=== PATIENT | female | born 1945 | race Two or more races ===

== ENCOUNTER → 2021-01-02 | Emergency (ER) | payer MEDICARE ==
[~2021-01-02] VITALS: Ht 167.6 cm; Wt 86.2 kg
[~2021-01-02] MED LIST: IBUP-1955 PO; KETOROLAC TROMETHAMINE INJ 30 MG/ML VIAL IM ONE; KETOROLAC TROMETHAMINE INJ 30 MG/ML VIAL ONE
--- NOTE | 2021-01-02 13:30 | NUR ---
The patient BIB for c/o abd pain since last night 9/10 pain scale, and c/o N/V. The patient is alert and orieneted x3. In room air and denies SOB. Respiration regular and unlabored. The patient is provided with a blanet for comfort. The patient is on monitor. Will continue to monitor.
[2021-01-02 13:53] LABS: BASOPHILS % (AUTO) 1.1 % (0.0-2.0); EOSINOPHILS % (AUTO) 2.2 % (0.0-6.0); HEMATOCRIT 41 % (33-45); HEMOGLOBIN 13.6 g/dL (11.5-14.8); LYMPHOCYTES # (AUTO) 1.3 /CMM (0.8-4.8); LYMPHOCYTES % (AUTO) 29.6 % (20.0-44.0); MEAN CORPUSCULAR HGB CONC 33 g/dl (31.0-36.0); MEAN CORPUSCULAR VOLUME 91 fL (82-100); MONOCYTES # (AUTO) 0.5 /CMM (0.1-1.30); MONOCYTES % (AUTO) 10.9 % (2.0-12.0); NEUTROPHILS # (AUTO) 2.5 /CMM (1.8-8.9); NEUTROPHILS % (AUTO) 56.2 % (43.0-81.0); PLATELET COUNT (AUTO) 216 /CMM (150-450); RED BLOOD CELL COUNT(AUTO) 4.52 MIL/uL (4.0-5.2); WHITE BLOOD COUNT (AUTO) 4.4 K/uL (4.3-11.0)
[2021-01-02 14:06] LABS: ALBUMIN 3.4 g/dL (3.4-5.0); BILIRUBIN,DIRECT 0.1 mg/dL (0.0-0.2); BILIRUBIN,TOTAL 0.3 mg/dL (0.2-1.0); CALCIUM, SERUM 9.2 mg/dL (8.5-10.1); CREATININE 0.9 mg/dL (0.6-1.3); TOTAL PROTEIN, SERUM 7.3 g/dL (6.4-8.2)
--- NOTE | 2021-01-02 15:38 | NUR ---
The patient is resting in bed. Denies any disrtess. Will contiinue to monitor.
[2021-01-02 15:42] LABS: BILIRUBIN,URINE Negative (NEGATIVE); COLOR,URINE YELLOW (YELLOW); LEUKOCYTE ESTERASE ,URINE Negative (NEGATIVE); NITRITE, URINE Negative (NEGATIVE); PROTEIN,URINE Negative (NEGATIVE); UGLUCOSE Negative (NEGATIVE); UROBILINOGEN,URINE 0.2 EU/dL (0.2)
--- NOTE | 2021-01-02 16:44 | NUR ---
Patient discharged to home in stable condition. Written and verbal after care instructions given. Prescription handed to the patient and verbalized understanding. Patient verbalizes understanding of instruction. Patient left the ER in stable condition.
[2021-01-02 16:46] VITALS: BP 132/79
== END | disposition home or self-care (01) ==
LOC: ER 13:27
DX: R10.12 Left upper quadrant pain (principal); R10.32 Left lower quadrant pain; E03.9 Hypothyroidism, unspecified; Z90.49 Acquired absence of other specified parts of digestive tract; Z98.890 Other specified postprocedural states
CPT/HCPCS: 36415; 74176; 80048; 80076; 81003; 83690; 85025; 96372; 99284; J1885

== ENCOUNTER 2025-09-21 01:02 | Emergency (ER) | payer MEDICARE, OTHER ==
[~2025-09-21] VITALS: Ht 167.6 cm; Wt 90.7 kg
[~2025-09-21 01:02] MED LIST changes: -KETOROLAC TROMETHAMINE INJ 30 MG/ML VIAL IM ONE; -KETOROLAC TROMETHAMINE INJ 30 MG/ML VIAL ONE
[2025-09-21] MEDS ORDERED: ACETAMINOPHEN W/ CODEINE#3 1 EA TABLET ONE (01:40)
[2025-09-21] MEDS: ACETAMINOPHEN W/ CODEINE#3 1 EA TABLET PO ONE (01:43)
[2025-09-21] MEDS ORDERED: ACET-907 PO (03:49)
[2025-09-21 04:19] VITALS: BP 135/75; TEMP 98; O2SAT 98
== END 2025-09-21 04:20 | disposition home or self-care (01) ==
LOC: ER 01:03
DX: M54.50 Low back pain, unspecified (principal); R51.9 Headache, unspecified; W18.39XA Other fall on same level, initial encounter; Y93.89 Activity, other specified; Y92.89 Other specified places as the place of occurrence of the external cause; Y99.9 Unspecified external cause status
CPT/HCPCS: 70450-TC; 71045-TC; 72125-TC; 72131-TC; 72170-TC